=== PATIENT | female | born 1970 ===

== ENCOUNTER 2019-02-23 05:00 | Inpatient (IN) | payer OTHER ==
[~2019-02-23] VITALS: Ht 152.4 cm; Wt 61.2 kg
[~2019-02-23 05:00] MED LIST: TYLE PO
[2019-02-24] MEDS ORDERED: ACETAMINOPHEN500 M1 PO (08:15)
[2019-02-24] MEDS ORDERED: COLACE100 MG PO (09:46)
[2019-02-24] MEDS ORDERED: ULTRAM50 MG PO (09:46)
== END 2019-02-24 13:28 | disposition home or self-care (01) | DRG 738 ==
LOC: CIR.AMB 05:00 → O/R 17:04 → SURH 18:29
PROVIDERS: ADMIT Obstetrics & Gynecology
PROC: 0UT14ZZ Resection of Left Ovary, Percutaneous Endoscopic Approach (ICD-10-PCS; 2019-02-23)
PROC: 3E0F7GC Introduction of Other Therapeutic Substance into Respiratory Tract, Via Natural or Artificial Opening (ICD-10-PCS; 2019-02-23)
PROC: 0UT64ZZ Resection of Left Fallopian Tube, Percutaneous Endoscopic Approach (ICD-10-PCS; principal; 2019-02-23 12:30)
DX: C56.2 Malignant neoplasm of left ovary (principal)